=== PATIENT | male | born 1980 | race Caucasian/White ===

== ENCOUNTER 2018-03-02 12:33 | Emergency (ER) | payer OTHER ==
[~2018-03-02] VITALS: Ht 175.3 cm; Wt 77.1 kg
[2018-03-02 12:44] VITALS: BP 134/90
--- NOTE | 2018-03-02 12:50 | NUR ---
PATIENT PRESENTS TO ED WITH complaints of changes in speech . PT STATES HE FEELS LIKE HE IS MUMBLING HIS WORDS MORE THAN NORMAL. STATES HE IS CURRENTLY HEARING VOICES STATES THAT THEY ARE NOT TELLING HIM TO HURT HIMSELF OF OTHERS. STATES HE USED [facility] A "FEW DAYS AGO" AND SMOKED [facility] TODAY. DENIES N/V/D; SKIN IS PINK/WARM/DRY; AAOX4 WITH EVEN AND STEADY GAIT; LUNGS CLEAR BL; HR EVEN AND REGULAR; PT DENIES ANY FEVER, CP, SOB, OR COUGH AT THIS TIME; PATIENT STATES PAIN OF 0/10 AT THIS TIME; VSS; PATIENT POSITIONED FOR COMFORT; HOB ELEVATED; BEDRAILS UP X2; BED DOWN. ER MD MADE AWARE OF PT STATUS.
--- NOTE | 2018-03-02 13:16 | NUR ---
PATIENT AMBULATED TO BED 9 AT THIS TIME.
[2018-03-02 14:08] LABS: BARBITURATE, URINE NEG. ng/ml (NEG <=200); BENZODIAZEPINE, URINE NEG. ng/mL (NEG <=200); CANNABINOID, URINE POS. ng/mL (NEG <=50); COCAINE, URINE NEG. ng/mL (NEG <=300); OPIATE, URINE NEG. ng/mL (NEG <=2000); PHENCYCLIDINE SCREEN,URINE NEG. ng/mL (NEG <=25)
--- NOTE | 2018-03-02 14:10 | NUR ---
PT AMBULATED TO THE RESTROOM WITH STEADY GAIT IN NO APPEARENT DISTRESS
--- NOTE | 2018-03-02 14:14 | NUR ---
LAB AT BEDSIDE
[2018-03-02 14:26] LABS: BASOPHILS % (AUTO) 0.4 % (0.0-2.0); EOSINOPHILS % (AUTO) 0.3 % (0.0-4.0); HEMATOCRIT 43.3 % (36-52); HEMOGLOBIN 14.2 g/dL (12.0-18.0); LYMPHOCYTES # (AUTO) 1.7 K/uL (2.0-11.5); MEAN CORPUSCULAR HEMOGLOBIN 26 pg (27-31); MEAN CORPUSCULAR HGB CONC 33 g/dL (33-37); MEAN CORPUSCULAR VOLUME 78.5 fL (80-94); MONOCYTES # (AUTO) 0.6 K/uL (0.8-1.0); MONOCYTES % (AUTO) 7.2 % (1.7-9.3); NEUTROPHILS # (AUTO) 6.5 K/uL (1.8-7.7); NEUTROPHILS % (AUTO) 73.1 % (42.2-75.2); PLATELET COUNT (AUTO) 200 K/uL (140-450); RED BLOOD CELL COUNT(AUTO) 5.52 MIL/uL (4.20-6.10); RED CELL DISTRIBUTION WIDTH 16.1 % (11.6-13.7); WHITE BLOOD COUNT (AUTO) 8.9 K/uL (4.8-10.8)
[2018-03-02 14:42] LABS: ANION GAP 8.8 (8-16); CHLORIDE 105 mmol/L (98-107); CREATININE 0.8 mg/dL (0.7-1.3); GFR ARICAN-AMERICAN 138 mL/min (>90); GLUCOSE 89 mg/dL (74-106); POTASSIUM 3.8 mmol/L (3.5-5.1); SODIUM SERUM 138 mmol/L (136-145); UREA NITROGEN, BLOOD 10 mg/dL (7-18)
[2018-03-02 14:52] LABS: APPEARANCE,URINE CLEAR (CLEAR); BILIRUBIN,URINE NEGATIVE (NEGATIVE); BLOOD, URINE NEGATIVE (NEGATIVE); COLOR,URINE STRAW (YELLOW); LEUKOCYTE ESTERASE ,URINE NEGATIVE (NEGATIVE); NITRITE, URINE NEGATIVE (NEGATIVE); UGLUCOSE NEGATIVE (NEGATIVE)
[2018-03-02 14:56] LABS: ALBUMIN 3.9 g/dL (3.4-5.0); ASPARTATE AMINOTRANSFERASE 13 U/L (15-37); TOTAL BILIRUBIN 0.3 mg/dL (0.0-1.0)
[2018-03-02 14:58] LABS: ACETAMINOPHEN < 0.5 ug/ml (10-30); SALICYLATE < 2.8 mg/dL (2.8-20.0)
[2018-03-02 15:41] VITALS: BP 134/90
--- NOTE | 2018-03-02 15:42 | NUR ---
Patient discharged with v/s stable. Written and verbal after care instructions given and explained. Patient verbalized understanding. Ambulatory with steady gait. All questions addressed prior to discharge. Advised to follow up with PMD.
== END 2018-03-02 15:42 | disposition home or self-care (01) ==
LOC: MED 12:33
DX: F15.10 Other stimulant abuse, uncomplicated (principal); F12.20 Cannabis dependence, uncomplicated; F20.9 Schizophrenia, unspecified; I10 Essential (primary) hypertension
CPT/HCPCS: 36415; 70450; 80053; 80305; 81003; 85025; 93005; 99285; G0480; G0482

== ENCOUNTER 2020-06-01 19:35 | Emergency (ER) | payer OTHER ==
[~2020-06-01] VITALS: Ht 175.3 cm; Wt 102.1 kg
[2020-06-01 19:35] VITALS: BP 110/63
--- NOTE | 2020-06-01 19:39 | NUR ---
[facility] CAN TAKEN TO LOBBY.
[2020-06-01 19:40] VITALS: BP 110/63
--- NOTE | 2020-06-01 20:19 | NUR ---
PT TAKEN RAD VIA W/C
--- NOTE | 2020-06-01 21:22 | NUR ---
PT TAKEN TO CHAIR [facility] AT CHAIRSIDE
[2020-06-01] MEDS ORDERED: IBUPROFEN 600 MG TAB PO ONE (21:30)
== END 2020-06-01 22:15 | disposition home or self-care (01) ==
LOC: MED 19:35
DX: S63.92XA Sprain of unspecified part of left wrist and hand, initial encounter (principal); S93.502A Unspecified sprain of left great toe, initial encounter; I10 Essential (primary) hypertension; F20.9 Schizophrenia, unspecified; W22.8XXA Striking against or struck by other objects, initial encounter; Y93.89 Activity, other specified; Y92.89 Other specified places as the place of occurrence of the external cause; Y99.8 Other external cause status
CPT/HCPCS: 73130; 73660; 99284